=== PATIENT | male | born 1940 | race Caucasian/White ===

== ENCOUNTER 2018-01-13 07:42 | Inpatient (IN) | payer OTHER ==
[~2018-01-13] VITALS: Ht 162.6 cm; Wt 108.2 kg
[2018-01-13] VITALS (9 sets, daily range): BP systolic 106–168; BP diastolic 67–88
[2018-01-13] MEDS ORDERED: NITROGLYCERIN SINGLE TAB 0.4 MG SL ONE ×2 (08:09→08:40)
[2018-01-13] MEDS ORDERED: ONDANSETRON ODT 4 MG ONE (08:09)
[2018-01-13] MEDS ORDERED: ASPIRIN 81 MG TABLET CHEW ONE (08:10)
[2018-01-13] MEDS: NITROGLYCERIN SINGLE TAB 0.4 MG SL PRN ×2 (08:21→08:41)
[2018-01-13 08:24] LABS: BASOPHILS # (AUTO) 0.04 x10^3/uL (0-0.1); BASOPHILS % (AUTO) 1 % (0-1); EOSINOPHILS # (AUTO) 0.15 x10^3/uL (0-0.4); EOSINOPHILS % (AUTO) 2 % (1-7); LYMPHOCYTES # (AUTO) 1.97 x10^3/uL (1-3.4); LYMPHOCYTES % (AUTO) 22 % (22-44); MD NO; MEAN CORPUSCULAR HEMOGLOBIN 31.3 pg (27.5-34.5); MEAN CORPUSCULAR HGB CONC 34.5 g/dL (33.2-36.2); MEAN CORPUSCULAR VOLUME 90.9 fL (81-97); MEAN PLATELET VOLUME 8.3 fL (7.4-10.4); MONOCYTES # (AUTO) 0.66 x10^3/uL (0.2-0.8); MONOCYTES % (AUTO) 8 % (2-9); NEUTROPHILS # (AUTO) 5.97 x10^3/uL (1.8-6.8); NEUTROPHILS % (AUTO) 68 % (42-75); PLATELET COUNT 206 x10^3/uL (130-400); RED BLOOD COUNT 5.09 x10^6/uL (4.38-5.82); RED CELL DISTRIBUTION WIDTH 12.9 % (9.4-14.8)
[2018-01-13] MEDS ORDERED: SODIUM CHLORIDE FLUSH 10ML SYR IVF ONE (08:30)
[2018-01-13] MEDS ORDERED: ONDANSETRON ODT 4 MG PO ONE (08:30)
[2018-01-13] MEDS ORDERED: ASPIRIN 81 MG TABLET CHEW PO ONE (08:30)
[2018-01-13] MEDS ORDERED: MORPHINE SULFATE 4 MG/ML, 1ML IVPush PRN (08:30)
[2018-01-13 08:32] LABS: INTERNATIONAL NORMALIZED RATIO 0.95 (0.93-1.1); PROTHROMBIN TIME 9.9 Seconds (9.6-11.5)
[2018-01-13 08:34] LABS: ALANINE AMINOTRANSFERASE 23 U/L (12-78); ANION GAP 11 mmol/L (5-15); CALCIUM 9.1 mg/dL (8.5-10.1); CHLORIDE 109 mmol/L (98-107); CREATININE 1.15 mg/dL (0.7-1.3)
[2018-01-13 08:38] LABS: ALKALINE PHOSPHATASE 120 U/L (45-117); BILIRUBIN,TOTAL 0.7 mg/dL (0.2-1.0); TOTAL PROTEIN 7.2 g/dL (6.4-8.2); TROPONIN I < 0.015 ng/mL (0.000-0.045)
[2018-01-13] MEDS ORDERED: FINA5TAB4 PO (08:51)
[2018-01-13] MEDS ORDERED: IRBE300T16 PO (08:53)
[2018-01-13] MEDS ORDERED: SODIUM CHLORIDE FLUSH 10ML SYR IVF PRN (09:00)
[2018-01-13] MEDS ORDERED: MORPHINE SULFATE 4 MG/ML, 1ML ONE (09:09)
[2018-01-13] MEDS ORDERED: ACETAMINOPHEN 325 MG TABLET PO PRN (13:00)
[2018-01-13] MEDS ORDERED: NITROGLYCERIN 0.4 MG BOTTLE (25 TABS) SL PRN ×2 (13:00→19:30)
[2018-01-13] MEDS ORDERED: NITROGLYCERIN 0.4 MG/SPRAY SL PRN ×2 (13:00→19:30)
[2018-01-13 13:37] LABS: CHOLESTEROL, TOTAL 185 mg/dL (140-239)
[2018-01-13 13:40] LABS: CHOL/HDL RATIO 5.1; HDL CHOL % 19 % (26-37); HDL CHOLESTEROL (DIRECT) 36 mg/dL (40-60); LDL CHOLESTEROL,CALCULATED 116 mg/dL (54-169); LDL/HDL RATIO 3.2 (0.5-3.0); TRIGLYCERIDES 164 mg/dL (50-200); VLDL CHOLESTEROL 33 mg/dL (0-25)
[2018-01-13 14:37] LABS: TROPONIN I 0.889 ng/mL (0.000-0.045)
[2018-01-13] MEDS ORDERED: HEPARIN 25,000 UNITS/500ML PMX 500 ML IV PRN (19:00)
[2018-01-13] MEDS ORDERED: HEPARIN 5,000 UNITS/ML, 1ML IV ONE (19:00)
[2018-01-13] MEDS ORDERED: HEPARIN 5,000 UNITS/ML, 1ML IV PRN (19:00)
[2018-01-13] MEDS ORDERED: FENTANYL PF 100 MCG/2ML ONE (20:32)
[2018-01-13] MEDS ORDERED: TICAGRELOR 90 MG TABLET ONE (20:32)
[2018-01-13] MEDS ORDERED: VERAPAMIL 2.5 MG/ML, 2ML ONE (20:32)
[2018-01-13] MEDS ORDERED: MIDAZOLAM 1 MG/ML, 5ML ONE (20:32)
[2018-01-13] MEDS ORDERED: LIDOCAINE-MPF 2% ,5ML ONE (20:33)
[2018-01-13] MEDS ORDERED: HEPARIN 1,000 UNITS/ML, 10ML ONE (20:33)
[2018-01-13] MEDS ORDERED: NITROGLYCERIN 5 MG/ML, 10ML ONE (20:33)
[2018-01-13] MEDS ORDERED: BIVALIRUDIN 250 MG ONE (20:33)
[2018-01-13] MEDS ORDERED: ATORVASTATIN 80 MG TABLET PO SCH (21:00)
[2018-01-13] MEDS ORDERED: DIPHENHYDRAMINE 50 MG/ML, 1ML ONE (21:11)
[2018-01-13] MEDS: SODIUM CHLORIDE 0.9% 1,000 ML IV SCH (23:19)
[2018-01-13] MEDS: ATORVASTATIN 80 MG TABLET PO SCH (23:44)
[2018-01-13] MEDS: FAMOTIDINE 20 MG TABLET PO SCH (23:44)
[2018-01-14 01:48] VITALS: BP 116/71
[2018-01-14] MEDS: ASPIRIN 81 MG TABLET EC PO SCH (05:20)
[2018-01-14] MEDS ORDERED: ASPIRIN 81 MG TABLET EC PO SCH (06:00)
[2018-01-14] MEDS ORDERED: ASPIRIN 325 MG TABLET EC PO SCH (06:00)
[2018-01-14 06:45] VITALS: BP 128/80
[2018-01-14 08:31] LABS: BASOPHILS # (AUTO) 0.05 x10^3/uL (0-0.1); BASOPHILS % (AUTO) 1 % (0-1); EOSINOPHILS # (AUTO) 0.15 x10^3/uL (0-0.4); EOSINOPHILS % (AUTO) 2 % (1-7); LYMPHOCYTES # (AUTO) 1.48 x10^3/uL (1-3.4); LYMPHOCYTES % (AUTO) 17 % (22-44); MD NO; MEAN CORPUSCULAR HGB CONC 34.1 g/dL (33.2-36.2); MEAN CORPUSCULAR VOLUME 90.7 fL (81-97); MEAN PLATELET VOLUME 8.3 fL (7.4-10.4); MONOCYTES # (AUTO) 0.53 x10^3/uL (0.2-0.8); MONOCYTES % (AUTO) 6 % (2-9); NEUTROPHILS # (AUTO) 6.77 x10^3/uL (1.8-6.8); NEUTROPHILS % (AUTO) 75 % (42-75); PLATELET COUNT 189 x10^3/uL (130-400); RED BLOOD COUNT 4.72 x10^6/uL (4.38-5.82); RED CELL DISTRIBUTION WIDTH 13.1 % (9.4-14.8)
[2018-01-14 08:45] LABS: ANION GAP 7 mmol/L (5-15); CALCIUM 8.4 mg/dL (8.5-10.1); CHLORIDE 110 mmol/L (98-107)
[2018-01-14] MEDS: FAMOTIDINE 20 MG TABLET PO SCH ×2 (09:28→21:28)
[2018-01-14] MEDS: FINASTERIDE 5 MG TABLET PO SCH (09:28)
[2018-01-14] MEDS: TICAGRELOR 90 MG TABLET PO SCH ×2 (09:28→21:29)
[2018-01-14] MEDS: SODIUM CHLORIDE 0.9% 1,000 ML IV SCH ×2 (10:18→21:28)
[2018-01-14 13:46] VITALS: BP 110/69
[2018-01-14 18:13] VITALS: BP 122/73
[2018-01-14] MEDS: METOPROLOL TARTRATE 25 MG TABLET PO SCH (18:15)
[2018-01-14 20:30] VITALS: BP 125/72
[2018-01-14] MEDS: ATORVASTATIN 80 MG TABLET PO SCH (21:29)
[2018-01-15 02:45] VITALS: BP 111/68
[2018-01-15 05:11] LABS: ANION GAP 5 mmol/L (5-15); CHLORIDE 112 mmol/L (98-107); CREATININE 1.21 mg/dL (0.7-1.3)
[2018-01-15] MEDS: ASPIRIN 81 MG TABLET EC PO SCH (05:31)
[2018-01-15 05:39] VITALS: BP 134/74
[2018-01-15] MEDS: SODIUM CHLORIDE 0.9% 1,000 ML IV SCH (05:39)
[2018-01-15 07:05] VITALS: BP 122/71
[2018-01-15] MEDS: TICAGRELOR 90 MG TABLET PO SCH (09:44)
[2018-01-15] MEDS: METOPROLOL TARTRATE 25 MG TABLET PO SCH (09:45)
[2018-01-15] MEDS: FINASTERIDE 5 MG TABLET PO SCH (09:45)
[2018-01-15] MEDS: FAMOTIDINE 20 MG TABLET PO SCH (09:45)
[2018-01-15 12:15] VITALS: BP 148/92
[2018-01-15] MEDS ORDERED: ASPI-621 PO (12:16)
[2018-01-15] MEDS ORDERED: METO25TA35 PO (12:16)
[2018-01-15] MEDS ORDERED: ATOR-2 PO (12:16)
[2018-01-15] MEDS ORDERED: TICA90TA PO (12:16)
== END 2018-01-15 13:35 | disposition home or self-care (01) | DRG 246 ==
LOC: ED 08:54 → INTOOBSV 08:55 → EDIP 08:55 → ED 09:15 → 5SO 11:20 → OBSVTOIN 11:38 → DCLOUNGE 01-15 13:08
PROVIDERS: ADMIT Family Medicine; ATTEND Family Medicine
PROC: 027034Z Dilation of Coronary Artery, One Artery with Drug-eluting Intraluminal Device, Percutaneous Approach (ICD-10-PCS; principal; 2018-01-13)
PROC: 4A023N7 Measurement of Cardiac Sampling and Pressure, Left Heart, Percutaneous Approach (ICD-10-PCS; 2018-01-13)
PROC: B2111ZZ Fluoroscopy of Multiple Coronary Arteries using Low Osmolar Contrast (ICD-10-PCS; 2018-01-13)
DX: I21.4 Non-ST elevation (NSTEMI) myocardial infarction (principal); I50.33 Acute on chronic diastolic (congestive) heart failure; Z68.41 Body mass index [BMI] 40.0-44.9, adult; I25.110 Atherosclerotic heart disease of native coronary artery with unstable angina pectoris; E66.9 Obesity, unspecified; E78.5 Hyperlipidemia, unspecified; I45.81 Long QT syndrome; R00.1 Bradycardia, unspecified; N40.0 Benign prostatic hyperplasia without lower urinary tract symptoms; Z80.51 Family history of malignant neoplasm of kidney; Z98.84 Bariatric surgery status; Z87.891 Personal history of nicotine dependence; Z79.82 Long term (current) use of aspirin; I11.0 Hypertensive heart disease with heart failure
CPT/HCPCS: 36415; 71045; 80048; 80053; 80061; 83880; 84484; 85025; 85379; 85520; 85610; 85730; 93005; 93306; 93458; 96374; 99156; 99157; 99285; C1769; C1894; C9600; G0378; J0583; J1644; J2250; J3010; J3490; Q0162; C1725; C1874; C1887; J1200; J7030; Q9967

== ENCOUNTER 2019-02-20 15:54 | Outpatient (CLI) | payer MEDICARE ==
[~2019-02-20 15:54] MED LIST: ASPI81TA45 PO; ATOR-2 PO; FINA5TAB4 PO; IRBE300T16 PO; METO25TA35 PO; TICA90TA PO
== END 2019-02-20 23:59 | disposition home or self-care (01) ==
LOC: CFH 15:54
PROVIDERS: ATTEND Registered Nurse
DX: I10 Essential (primary) hypertension (principal); E78.2 Mixed hyperlipidemia; I25.10 Atherosclerotic heart disease of native coronary artery without angina pectoris; R07.89 Other chest pain
CPT/HCPCS: 71046

== ENCOUNTER → 2019-02-25 | Outpatient (CLI) | payer MEDICARE ==
[2019-02-25 13:40] LABS: ALBUMIN 3.9 g/dL (3.4-5.0); CALCIUM 8.9 mg/dL (8.5-10.1); CHLORIDE 110 mmol/L (98-107)
[2019-02-25 13:45] LABS: ALANINE AMINOTRANSFERASE 23 U/L (12-78); ALKALINE PHOSPHATASE 130 U/L (45-117); BILIRUBIN,TOTAL 0.7 mg/dL (0.2-1.0); CHOL/HDL RATIO 4.8; CHOLESTEROL, TOTAL 188 mg/dL (140-239); CREATININE 1.19 mg/dL (0.7-1.3); HDL CHOL % 21 % (26-37); HDL CHOLESTEROL (DIRECT) 39 mg/dL (40-60); LDL CHOLESTEROL,CALCULATED 118 mg/dL (54-169); TRIGLYCERIDES 157 mg/dL (50-200); VLDL CHOLESTEROL 31 mg/dL (0-25)
[2019-02-25 13:49] LABS: ANION GAP 5 mmol/L (5-15)
== END | disposition home or self-care (01) ==
LOC: CFH 09:26
PROVIDERS: ATTEND Registered Nurse
DX: E78.2 Mixed hyperlipidemia (principal); I10 Essential (primary) hypertension; I25.10 Atherosclerotic heart disease of native coronary artery without angina pectoris
CPT/HCPCS: 36415; 80053; 80061

== ENCOUNTER → 2020-05-05 | Outpatient (CLI) | payer MEDICARE ==
[~2020-05-05] MED LIST changes: -IRBE300T16 PO; +IRBE300T8 PO; +REGADENOSON 0.4 MG/5 ML SYRINGE ONE
== END | disposition home or self-care (01) ==
LOC: CFH 08:03
PROVIDERS: ATTEND Internal Medicine Cardiovascular Disease
DX: I65.23 Occlusion and stenosis of bilateral carotid arteries (principal); I10 Essential (primary) hypertension; I25.10 Atherosclerotic heart disease of native coronary artery without angina pectoris
CPT/HCPCS: 78452; 93017; 93880; A9502; J2785

== ENCOUNTER → 2020-09-04 | Outpatient (CLI) | payer MEDICARE ==
[~2020-09-04] MED LIST changes: -REGADENOSON 0.4 MG/5 ML SYRINGE ONE
[2020-09-04 14:59] LABS: BASOPHILS % (AUTO) 1 % (0-1); EOSINOPHILS % (AUTO) 1 % (1-7); LYMPHOCYTES % (AUTO) 28 % (22-44); MD NO; MEAN CORPUSCULAR HEMOGLOBIN 31.5 pg (27.5-34.5); MEAN CORPUSCULAR HGB CONC 34.4 g/dL (33.2-36.2); MEAN PLATELET VOLUME 8.4 fL (7.4-10.4); MONOCYTES % (AUTO) 7 % (2-9); NEUTROPHILS % (AUTO) 63 % (42-75); PLATELET COUNT 195 x10^3/uL (130-400); RED BLOOD COUNT 4.85 x10^6/uL (4.38-5.82); RED CELL DISTRIBUTION WIDTH 13.6 % (9.4-14.8)
[2020-09-04 15:10] LABS: ALANINE AMINOTRANSFERASE 42 U/L (12-78); ALBUMIN 3.9 g/dL (3.4-5.0); ANION GAP 4 mmol/L (5-15); CALCIUM 9.1 mg/dL (8.5-10.1); CHLORIDE 109 mmol/L (98-107); CREATININE 1.03 mg/dL (0.7-1.3)
[2020-09-04 15:11] LABS: PROTHROMBIN TIME 10.7 Seconds (9.6-11.5)
[2020-09-04 15:12] LABS: ALKALINE PHOSPHATASE 118 U/L (45-117); BILIRUBIN,TOTAL 1.2 mg/dL (0.2-1.0)
== END | disposition home or self-care (01) ==
LOC: STAR 13:30
PROVIDERS: ATTEND Orthopaedic Surgery
DX: Z01.810 Encounter for preprocedural cardiovascular examination (principal); Z01.818 Encounter for other preprocedural examination; M25.562 Pain in left knee; T84.195A Other mechanical complication of internal fixation device of left femur, initial encounter; Y83.9 Surgical procedure, unspecified as the cause of abnormal reaction of the patient, or of later complication, without mention of misadventure at the time of the procedure; Y92.89 Other specified places as the place of occurrence of the external cause; Z96.659 Presence of unspecified artificial knee joint; Z79.01 Long term (current) use of anticoagulants
CPT/HCPCS: 36415; 80053; 83036; 85025; 85610; 85730; 87081; 87147; 93005